=== PATIENT | male | born 1965 | race African-American/Black ===

== ENCOUNTER 2017-04-04 14:41 | Emergency (ER) | payer BC ==
[2017-04-04] MEDS ORDERED: Ibuprofen 800 MG TAB ONE (14:49)
[2017-04-04] MEDS ORDERED: Acetaminophen 500 MG TAB ONE (14:49)
[2017-04-04 15:23] LABS: ALT (SGPT) 47 U/L (8-55); AST (SGOT) 47 U/L (5-34); Albumin 3.5 g/dL (3.5-5.0); Alkaline Phosphatase 90 U/L (40-150); Anion Gap 13 mmol/L (10-20); BUN (Urea Nitrogen) 13 mg/dL (8.9-20.6); Bilirubin, Total 0.5 mg/dL (0.2-1.2); Calc. Creatinine Clearance 0 mL/min (70-130); Calcium 9.1 mg/dL (7.8-10.44); Carbon Dioxide 25 mmol/L (22-29); Chloride 95 mmol/L (98-107); Estimated GFR-MDRD 61; Globulin 4.3 g/dL (2.4-3.5); Glucose 191 mg/dL (70-105); Lipase 58 U/L (8-78); Potassium 3.9 mmol/L (3.5-5.1); Protein, Total 7.8 g/dL (6.0-8.3); Sodium 129 mmol/L (136-145)
[2017-04-04 15:24] LABS: Hemoglobin 15.3 g/dL (14.0-18.0); Mean Corpuscular HGB CONC 33.1 g/dL (32.0-36.0); Mean Corpuscular Hemoglobin 27.8 pg (27.0-31.0); Mean Corpuscular Volume 84.2 fl (80.0-94.0); Mean Platelet Volume 9.2 fL (7.4-10.4); Platelet Count 150 thou/uL (130-400); RBC Distribution Width 13.2 % (11.5-14.5); Red Blood Cell (RBC) Count 5.51 mill/uL (4.70-6.10); White Blood Cell (WBC) Count 9.5 thou/uL (4.8-10.8)
[2017-04-04 15:26] LABS: MDiff Complete? YES
[2017-04-04 15:51] LABS: Bilirubin Negative (Negative); Blood, Urine Moderate (Negative); Clarity Clear (Clear); Glucose, Urine (Dipstick) Negative (Negative); Leukocyte Negative (Negative); Nitrite Negative (Negative); Protein, Urine (Dipstick) > or equal to 300 mg/dL (Neg-Trace); Specific Gravity, Urine 1.015 (1.005-1.030); Urobilinogen 0.2 mg/dL (0.2-1.0); pH, Urine 5.5 (5.0-9.0)
[2017-04-04 16:03] LABS: RBC/HPF 0-3 HPF (0-3); Squamous Epithelial 0-3 HPF (0-3); Transitional Epithelial NONE SEEN HPF (0-3); WBC/HPF 0-3 HPF (0-3)
[2017-04-04 16:04] LABS: Bacteria/HPF Rare-Few HPF (None Seen); Crystals/HPF None Seen HPF (Negative); Hyaline Casts/LPF NONE SEEN LPF (0-3 Hyaline); Other Casts/LPF 0-3 MIXED CASTS LPF (0-3 Hyaline); Oval Fat Bodies/HPF None Seen HPF (None Seen); Renal Epithelial None Seen HPF (0-3); Sperm/HPF None Seen HPF (None Seen); Trichomonas/HPF None Seen HPF (None Seen); Yeast-All Forms None Seen HPF (None Seen)
[2017-04-04 16:05] LABS: Other Microscopic Description RARE GRANULAR CAST
--- NOTE | 2017-04-04 17:56 | RAD ---
CHEST TWO VIEWS 04/04/17 The heart is upper normal in size but not clearly enlarged. There is no vascular congestion, edema, or pleural effusion. The lungs are clear. The trachea is midline. There is no current finding of pne umonia. IMPRESSION: No acute findings. POS: HOME
== END 2017-04-04 16:35 | disposition home or self-care (01) ==
LOC: BURERS 14:41
DX: A08.4 Viral intestinal infection, unspecified (principal); E87.1 Hypo-osmolality and hyponatremia; E11.9 Type 2 diabetes mellitus without complications; I10 Essential (primary) hypertension; F17.220 Nicotine dependence, chewing tobacco, uncomplicated; Z79.84 Long term (current) use of oral hypoglycemic drugs; Z79.899 Other long term (current) drug therapy
CPT/HCPCS: 36416; 71020; 80053; 81003; 81015; 82274; 83690; 85025; 87015; 87040; 87045; 87046; 87324; 87449; 87899; 94760; 96360

== ENCOUNTER 2017-04-05 16:31 | Outpatient (CLI) | payer BC ==
[2017-04-05 17:01] LABS: ALT (SGPT) 53 U/L (8-55); AST (SGOT) 48 U/L (5-34); Albumin 3.5 g/dL (3.5-5.0); Alkaline Phosphatase 95 U/L (40-150); Anion Gap 15 mmol/L (10-20); BUN (Urea Nitrogen) 13 mg/dL (8.9-20.6); Bilirubin, Total 0.7 mg/dL (0.2-1.2); Calc. Creatinine Clearance 0 mL/min (70-130); Calcium 8.8 mg/dL (7.8-10.44); Carbon Dioxide 27 mmol/L (22-29); Chloride 96 mmol/L (98-107); Estimated GFR-MDRD 59; Globulin 3.8 g/dL (2.4-3.5); Glucose 166 mg/dL (70-105); Potassium 4.3 mmol/L (3.5-5.1); Protein, Total 7.3 g/dL (6.0-8.3); Sodium 134 mmol/L (136-145)
[2017-04-05 17:09] LABS: Band 17 % (5-11); Hemoglobin 14.7 g/dL (14.0-18.0); Lymphocytes 6 % (21-51); MDiff Complete? YES; Mean Corpuscular HGB CONC 31.6 g/dL (32.0-36.0); Mean Corpuscular Hemoglobin 27.3 pg (27.0-31.0); Mean Corpuscular Volume 86.3 fl (80.0-94.0); Mean Platelet Volume 8.8 fL (7.4-10.4); Monocytes 8 % (0-10); Neutrophil 69 % (42-75); Platelet Count 124 thou/uL (130-400); RBC Distribution Width 13.7 % (11.5-14.5)
== END 2017-04-05 16:32 | disposition home or self-care (01) ==
LOC: HPCALD 16:31
PROVIDERS: ATTEND Family Medicine
DX: E87.1 Hypo-osmolality and hyponatremia (principal); R50.9 Fever, unspecified
CPT/HCPCS: 36415; 80053; 85025

== ENCOUNTER 2017-06-07 04:19 | Outpatient (CLI) | payer BC ==
[2017-06-07 06:49] LABS: Hemoglobin 11.3 g/dL (14.0-18.0); Mean Corpuscular HGB CONC 32.6 g/dL (32.0-36.0); Mean Corpuscular Hemoglobin 29.9 pg (27.0-31.0); Mean Platelet Volume 7.5 fL (7.4-10.4); Platelet Count 240 thou/uL (130-400); RBC Distribution Width 13.7 % (11.5-14.5); Red Blood Cell (RBC) Count 3.76 mill/uL (4.70-6.10); White Blood Cell (WBC) Count 7.4 thou/uL (4.8-10.8)
[2017-06-07 06:52] LABS: INR-International Normal Ratio 1.5; Prothrombin Time 18.2 SEC (12.0-14.7)
[2017-06-07 07:04] LABS: Hemoglobin A1c 5.6 % (4.0-6.0)
[2017-06-07 07:12] LABS: Anion Gap 15 mmol/L (10-20); BUN (Urea Nitrogen) 29 mg/dL (8.9-20.6); Calc. Creatinine Clearance 0 mL/min (70-130); Calcium 9.7 mg/dL (7.8-10.44); Carbon Dioxide 25 mmol/L (22-29); Chloride 102 mmol/L (98-107); Estimated GFR-MDRD 83; Glucose 120 mg/dL (70-105); Potassium 4.6 mmol/L (3.5-5.1); Sodium 137 mmol/L (136-145)
== END 2017-06-07 04:20 | disposition home or self-care (01) ==
LOC: BURLABSP 04:19
PROVIDERS: ATTEND Clinical Nurse Specialist Medical-Surgical
DX: Z51.81 Encounter for therapeutic drug level monitoring (principal); Z79.899 Other long term (current) drug therapy; L10.9 Pemphigus, unspecified
CPT/HCPCS: 36415; 80048; 83036; 85027; 85610

== ENCOUNTER 2018-10-11 23:36 | Emergency (ER) | payer OTHER | END 2018-10-12 00:15 | LOC: BURERS 23:36 | DX: K94.23 Gastrostomy malfunction (principal); E11.9 Type 2 diabetes mellitus without complications; E66.9 Obesity, unspecified; E78.5 Hyperlipidemia, unspecified; Z79.899 Other long term (current) drug therapy; Z79.4 Long term (current) use of insulin | CPT/HCPCS: 99283 ==

== ENCOUNTER 2018-11-15 08:49 | Emergency (ER) | payer OTHER | END 2018-11-15 10:12 | disposition short-term general hospital (02) | LOC: BURERS 08:49 | DX: K94.23 Gastrostomy malfunction (principal); E78.5 Hyperlipidemia, unspecified; E11.9 Type 2 diabetes mellitus without complications; I10 Essential (primary) hypertension; E66.9 Obesity, unspecified | CPT/HCPCS: 99284; B4087 ==

== ENCOUNTER 2019-01-17 14:24 | Emergency (ER) | payer OTHER ==
--- NOTE | 2019-01-17 16:40 | RAD ---
PORTABLE CHEST 01/17/19 An AP portable film at 1451 is compared with a 08/28/18 study from [facility]. Cardiomegaly is about the same. There is no mediastinal widening or shift. There is no vascular conge stion, edema, or pleural effusion. The lungs are largely clear except for a linear streak over the right hilar region. This may be a str ip of atelectasis. Otherwise, the lungs were unremarkable. IMPRESSION: Possible strip of plate-like atelectasis in the right mid lung. Otherwise, exam unchanged from prior study. POS: HOME
== END 2019-01-17 16:33 | disposition home or self-care (01) ==
LOC: BURERS 14:24
DX: R11.10 Vomiting, unspecified (principal); R05 Cough; E11.9 Type 2 diabetes mellitus without complications; E78.5 Hyperlipidemia, unspecified; Z86.73 Personal history of transient ischemic attack (TIA), and cerebral infarction without residual deficits; Z79.899 Other long term (current) drug therapy; Z79.4 Long term (current) use of insulin
CPT/HCPCS: 71045

== ENCOUNTER 2020-05-08 18:10 | Emergency (ER) | payer MEDICARE, MEDICAID ==
[2020-05-08 18:42] LABS: #Basophils 0.2 thou/uL (0.0-0.2); #Eosinphils 0.1 thou/uL (0.0-0.7); #Lymphocytes 1.3 thou/uL (1.20-3.40); #Monocytes 0.6 thou/uL (0.11-0.59); #Neutrophils 9.8 thou/uL (1.40-6.50); %Basophils 1.5 % (0.0-1.0); %Eosinophils 0.6 % (0.0-10.0); %Lymphocytes 10.6 % (21.0-51.0); %Neutrophils 82.2 % (42.0-75.0); Hemoglobin 16.2 g/dL (14.0-18.0); Mean Corpuscular HGB CONC 30.4 g/dL (32.0-36.0); Mean Corpuscular Hemoglobin 30.1 pg (27.0-31.0); Mean Corpuscular Volume 98.9 fL (78.0-98.0); Mean Platelet Volume 10.9 fL (7.4-10.4); Platelet Count 124 thou/uL (130-400); RBC Distribution Width 13.9 % (11.5-14.5); White Blood Cell (WBC) Count 11.9 thou/uL (4.8-10.8)
[2020-05-08 19:00] LABS: ALT (SGPT) 20 U/L (8-55); AST (SGOT) 20 U/L (5-34); Albumin 3.7 g/dL (3.5-5.0); Alkaline Phosphatase 102 U/L (40-110); Anion Gap 16 mmol/L (10-20); BUN (Urea Nitrogen) 15 mg/dL (8.4-25.7); Bilirubin, Total 0.3 mg/dL (0.2-1.2); CK (CPK) 117 U/L (30-200); Calc. Creatinine Clearance 0 mL/min (70-130); Calcium 9.1 mg/dL (7.8-10.44); Carbon Dioxide 26 mmol/L (22-29); Chloride 101 mmol/L (98-107); Estimated GFR-MDRD 82; Globulin 4.5 g/dL (2.4-3.5); Glucose 158 mg/dL (70-105); Potassium 5.3 mmol/L (3.5-5.1); Protein, Total 8.2 g/dL (6.0-8.3); Sodium 138 mmol/L (136-145)
[2020-05-08 19:01] LABS: Bilirubin Negative (Negative); Blood, Urine Large (Negative); Clarity Turbid (Clear); Glucose, Urine (Dipstick) Negative (Negative); Ketone, Urine Negative (Negative); Leukocyte Negative (Negative); Nitrite Negative (Negative); Protein, Urine (Dipstick) > or equal to 300 mg/dL (Neg-Trace); Specific Gravity, Urine 1.026 (1.002-1.036); Urobilinogen 0.2 mg/dL (Less than 2); pH, Urine 5.5 (5.0-9.0)
[2020-05-08 19:02] LABS: Bacteria/HPF 1+ HPF (None Seen); Squamous Epithelial 0-3 HPF (0-3); WBC/HPF 0-3 HPF (0-3)
[2020-05-08] MEDS ORDERED: Cefepime 2 GM VIAL ONE (19:07)
[2020-05-08] MEDS ORDERED: levETIRAcetam 500 MG/5 ML VIAL ONE (19:07)
--- NOTE | 2020-05-09 08:01 | RAD ---
PORTABLE CHEST: Date: 05/08/2020 An AP portable film at 1829 hours shows a patchy opacity in the right base medially. An early infiltr ate is possible. The left lung is clear. The vessels do not seem congested. The heart is probably nor mal in size given body habitus and AP projection. At most, it is upper normal. IMPRESSION: Patchy right basilar infiltrate. POS: HOME
--- NOTE | 2020-05-09 08:03 | CT ---
CT BRAIN WITHOUT CONTRAST: Date: 05/08/2020 Comparison made with the 07/20/2019 study. An old right parietal stroke is evident and is similar in appearance to before. Diffuse atrophy with moderate compensatory dilatation of the ventricles is present as usual. There are some chronic ischem ic changes in the deep white matter aside from the stroke. No mass, edema, or bleeding was seen. There is marked mucosal thickening in the left maxillary sinus. The other visible paranasal sinuses a re clear. IMPRESSION: 1. 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 2. Left maxillary sinusitis, a new finding since the prior exam. Preliminary report called to Dr. Figueroa at 1924 hours on 05/08/2020. CODE CR. POS: HOME
== END 2020-05-08 19:59 | disposition short-term general hospital (02) ==
LOC: BURERS 18:10
DX: J18.9 Pneumonia, unspecified organism (principal); R56.9 Unspecified convulsions; E11.9 Type 2 diabetes mellitus without complications; E78.5 Hyperlipidemia, unspecified; I10 Essential (primary) hypertension; Z86.73 Personal history of transient ischemic attack (TIA), and cerebral infarction without residual deficits; Z79.899 Other long term (current) drug therapy; Z79.4 Long term (current) use of insulin
CPT/HCPCS: 51701; 70450; 71045; 80053; 81003; 81015; 82550; 83605; 84443; 84484; 85025; 87040; 87086; 93005; 94760; 96361; 96365; 96368; 96375; J0692; J1953; J1956; J3370

== ENCOUNTER 2020-05-25 12:27 | Outpatient (CLI) | payer MEDICARE, OTHER ==
--- NOTE | 2020-05-25 17:08 | RAD ---
ABDOMEN ONE VIEW: 05/25/20 Comparison is made with the 12/26/18 study. This single view did not show any marked distended loops of to suggest obstruction. Nor was there an excessive amount of fecal material evident. There are some unusual linear gas collections in the righ t flank in the middle to upper portion of the right side of the abdomen. The etiology is not clear on this study. The patient does seem to have a gastrostomy or similar PEG tube in place. No calcificati ons of concern were seen. I would note that the unusual gas collection seen on the right side are celestine y near a site of prior surgery as evidenced by sutures. I note that the patient's femoral heads have very spotty mineralization, though the articular surface s seem smooth. This may be from disuse, but it is more noticeable than on the 2019 study. IMPRESSION: Somewhat unusual gas configuration in the right mid flank. No evidence of alfredito obstruction. See CT r eport to follow. POS: HOME
--- NOTE | 2020-05-25 18:03 | CT ---
CT ABDOMEN AND PELVIS WITHOUT CONTRAST: 05/25/[address] of the abdomen and pelvis was done without oral or IV contrast to investigate abnormal find ings seen on the recent plain radiograph. Around the area of prior colon surgery in the right mid fla nk there is an amalgamation of several small nondistended loops of small bowel. These are likely adhe sed to this area and this entire area may be adhesed to the inner abdominal wall at this point. This would account for the unusual gas configuration seen on plain radiography. It is important to note; h owever, that there is currently no dilation of bowel at all, thus there is no evidence for obstructio n. This could become a point of kinking of bowel and obstruction in the future and should be borne in mind. There is diastasis of the rectus muscles to some extent around the umbilical area. This was po tentially related to the prior surgery. No free air or free fluid was seen. The lung bases are clear. The liver, spleen, pancreas, adrenal glands, kidneys, gallbladder and abdom inal aorta showed no acute findings within the limitations of this noncontrast study. CT of the pelvis showed a prominently enlarged prostate gland (6 cm wide). There are no pelvic inflam matory changes, free fluid or obvious mass. While the mineralization of the femoral heads is spotty, I do not see any bony destructive lesions or widespread sclerotic lesions. IMPRESSION: 1. No evidence of bowel obstruction. No evidence of fecal impaction. The amount of feces present is normal. 2. Unusual gas collection seen on plain radiographs appears to be due to several loops of small bowel that are likely adhesed to an area of prior colonic surgery in the right mid flank. This may be a future site for obstruction, but it is not currently an issue. Findings discussed with Hector Bhat at 1424 on 05/25/20. POS: HOME
== END 2020-05-25 12:28 | disposition home or self-care (01) ==
LOC: BURRAD 12:27
PROVIDERS: ATTEND Registered Nurse Community Health
DX: R14.0 Abdominal distension (gaseous) (principal); R19.5 Other fecal abnormalities; Z90.49 Acquired absence of other specified parts of digestive tract
CPT/HCPCS: 74018; 74176

== ENCOUNTER 2020-06-13 11:05 | Emergency (ER) | payer MEDICARE, MEDICAID ==
[2020-06-13] MEDS ORDERED: Lorazepam 2 MG/ML VIAL ONE (11:13)
[2020-06-13 11:53] LABS: ALT (SGPT) 27 U/L (8-55); AST (SGOT) 22 U/L (5-34); Albumin 3.7 g/dL (3.5-5.0); Alkaline Phosphatase 87 U/L (40-110); Anion Gap 16 mmol/L (10-20); BUN (Urea Nitrogen) 18 mg/dL (8.4-25.7); Bilirubin, Total 0.3 mg/dL (0.2-1.2); Calc. Creatinine Clearance 0 mL/min (70-130); Calcium 8.9 mg/dL (7.8-10.44); Carbon Dioxide 25 mmol/L (22-29); Chloride 102 mmol/L (98-107); Estimated GFR-MDRD Greater than 90; Globulin 4.2 g/dL (2.4-3.5); Glucose 106 mg/dL (70-105); Potassium 4.5 mmol/L (3.5-5.1); Protein, Total 7.9 g/dL (6.0-8.3); Sodium 138 mmol/L (136-145)
[2020-06-13 11:59] LABS: Band 4 % (5-11); Eosinophils 3 % (0-10); Hemoglobin 15.5 g/dL (14.0-18.0); Lymphocytes 36 % (21-51); MDiff Complete? YES; Macrocytosis SLIGHT = 6-15 cells (100X) (0-5/hpf); Mean Corpuscular Hemoglobin 29.2 pg (27.0-31.0); Monocytes 5 % (0-10); Neutrophil 52 % (42-75); Platelet Count 127 thou/uL (130-400); RBC Distribution Width 13.9 % (11.5-14.5); Red Blood Cell (RBC) Count 5.31 mill/uL (4.70-6.10); Toxic Granulation SLIGHT; Vacuoles SLIGHT; White Blood Cell (WBC) Count 5.5 thou/uL (4.8-10.8)
[2020-06-13 13:10] LABS: Bilirubin Negative (Negative); Blood, Urine Trace (Negative); Clarity Clear (Clear); Glucose, Urine (Dipstick) Negative (Negative); Ketone, Urine 15 mg/dL (Negative); Leukocyte Negative (Negative); Nitrite Negative (Negative); Protein, Urine (Dipstick) 100 mg/dL (Neg-Trace); pH, Urine 7.5 (5.0-9.0)
[2020-06-13 13:17] LABS: Bacteria/HPF None Seen HPF (None Seen); RBC/HPF 0-3 HPF (0-3); Squamous Epithelial 0-3 HPF (0-3); WBC/HPF 0-3 HPF (0-3)
--- NOTE | 2020-06-13 17:45 | CT ---
CT OF THE BRAIN WITHOUT CONTRAST: Date: 06-13-[address] was done in response to a seizure. Comparison: 05-08-2020 FINDINGS: Again noted is a prior right parietal stroke with resulting encephalomalacia. The appearance does not seem much different than the prior study. Diffuse atrophy is present as usual, along with moderate c ompensatory dilation of the ventricles. There were no findings strongly suggestive of acute stroke. N o mass, edema, or bleeding was seen. The mucosal thickening in the left maxillary sinus has improved considerably since the prior study. There may be some small polyps in the medial wall of each maxilla ry sinus. IMPRESSION: Old right parietal CVA. No acute intracranial findings. Preliminary report called to Dr. Masterson at 1147 on 06-13-2020. POS: HOME
--- NOTE | 2020-06-13 17:48 | RAD ---
PORTABLE CHEST: Date: 06-13-2020 An AP portable film at 1227 is compared with a 05-11-2020 study. FINDINGS: The depth of inspiration is shallow which accounts for some crowding of the basilar markings. Allowin g for this, no lobar consolidation or effusion was seen. There is no vascular congestion, edema, or o ther acute parenchymal findings of concern. The cardiac size is normal. A thin area of tubing is seen on the right side of the patient's neck, but this may be exterior to the patient. IMPRESSION: No acute thoracic finding. POS: HOME
== END 2020-06-13 14:10 | disposition home or self-care (01) ==
LOC: BURERS 11:05
DX: R56.9 Unspecified convulsions (principal); E11.9 Type 2 diabetes mellitus without complications; E78.5 Hyperlipidemia, unspecified; I10 Essential (primary) hypertension; Z86.73 Personal history of transient ischemic attack (TIA), and cerebral infarction without residual deficits; Z79.899 Other long term (current) drug therapy
CPT/HCPCS: 36415; 51701; 70450; 71045; 80053; 80164; 81003; 81015; 84484; 85025; 94760; 96361; 96374; J2060

== ENCOUNTER 2020-10-21 19:39 | Emergency (ER) | payer MEDICARE, OTHER, MEDICAID ==
[2020-10-21] MEDS ORDERED: Lorazepam 2 MG/ML VIAL ONE (19:41)
[2020-10-21] MEDS ORDERED: levETIRAcetam in NS 100 ML ONE (19:43)
[2020-10-21 20:10] LABS: ALT (SGPT) 23 U/L (8-55); AST (SGOT) 24 U/L (5-34); Albumin 3.8 g/dL (3.5-5.0); Alkaline Phosphatase 111 U/L (40-110); Anion Gap 18 mmol/L (10-20); BUN (Urea Nitrogen) 16 mg/dL (8.4-25.7); Bilirubin, Total 0.4 mg/dL (0.2-1.2); Calc. Creatinine Clearance 0 mL/min (70-130); Calcium 9.6 mg/dL (7.8-10.44); Carbon Dioxide 23 mmol/L (22-29); Chloride 103 mmol/L (98-107); Globulin 4.9 g/dL (2.4-3.5); Glucose 129 mg/dL (70-105); Potassium 4.9 mmol/L (3.5-5.1); Protein, Total 8.7 g/dL (6.0-8.3); Sodium 139 mmol/L (136-145)
[2020-10-21 20:13] LABS: Hemoglobin 17.5 g/dL (14.0-18.0); Mean Corpuscular HGB CONC 31.3 g/dL (32.0-36.0); Mean Corpuscular Hemoglobin 29.6 pg (27.0-31.0); Mean Corpuscular Volume 94.6 fL (78.0-98.0); Platelet Count 149 thou/uL (130-400); RBC Distribution Width 14.7 % (11.5-14.5); Red Blood Cell (RBC) Count 5.91 mill/uL (4.70-6.10); White Blood Cell (WBC) Count 5.9 thou/uL (4.8-10.8)
[2020-10-21 20:19] LABS: Large Platelets SLIGHT; MDiff Complete? YES; Platelet Morphology Comment Appears Adequate; RBC Morphology Normal
[2020-10-21] MEDS ORDERED: metroNIDAZOLE 500 MG/100 ML BAG ONE (20:48)
[2020-10-21 20:49] LABS: Bilirubin Negative (Negative); Blood, Urine Negative (Negative); Clarity Slightly Cloudy (Clear); Glucose, Urine (Dipstick) Negative (Negative); Ketone, Urine Negative (Negative); Leukocyte Negative (Negative); Nitrite Negative (Negative); Protein, Urine (Dipstick) 30 mg/dL (Neg-Trace); Urobilinogen 0.2 mg/dL (Less than 2); pH, Urine 8.5 (5.0-9.0)
[2020-10-21 20:57] LABS: PTT 27.3 sec (22.9-36.1); Prothrombin Time 13.6 sec (12.0-14.7)
[2020-10-21 21:02] LABS: Bacteria/HPF 2+ HPF (None Seen); RBC/HPF None Seen HPF (0-3); Renal Epithelial 0-3 HPF (None Seen); Squamous Epithelial 0-3 HPF (0-3); WBC/HPF 0-3 HPF (0-3)
== END 2020-10-21 21:40 | disposition short-term general hospital (02) ==
LOC: BURERS 19:39
DX: G40.909 Epilepsy, unspecified, not intractable, without status epilepticus (principal); J12.89 Other viral pneumonia; E11.9 Type 2 diabetes mellitus without complications; E78.5 Hyperlipidemia, unspecified; I10 Essential (primary) hypertension; Z86.73 Personal history of transient ischemic attack (TIA), and cerebral infarction without residual deficits; Z79.4 Long term (current) use of insulin; Z79.51 Long term (current) use of inhaled steroids; Z79.899 Other long term (current) drug therapy
CPT/HCPCS: 36415; 36416; 51701; 70450; 71045; 80053; 81003; 81015; 83605; 84484; 85025; 85610; 85730; 87040; 93005; 94760; 96365; 96375; J1953; J1956; J2060; J3370

== ENCOUNTER 2021-03-29 18:55 | Emergency (ER) | payer MEDICARE, MEDICAID ==
[2021-03-29] MEDS ORDERED: Lorazepam 2 MG/ML VIAL ONE (19:05)
[2021-03-29] MEDS ORDERED: levETIRAcetam in NS 100 ML ONE (19:13)
[2021-03-29 19:42] LABS: Hemoglobin 12.9 g/dL (14.0-18.0); Mean Corpuscular HGB CONC 32.1 g/dL (32.0-36.0); Mean Corpuscular Volume 96.5 fL (78.0-98.0); Mean Platelet Volume 11.1 fL (7.4-10.4); Platelet Count 106 thou/uL (130-400); RBC Distribution Width 14.7 % (11.5-14.5); Red Blood Cell (RBC) Count 4.17 mill/uL (4.70-6.10); White Blood Cell (WBC) Count 7.2 thou/uL (4.8-10.8)
[2021-03-29 19:57] LABS: ALT (SGPT) 20 U/L (8-55); AST (SGOT) 17 U/L (5-34); Albumin 1.7 g/dL (3.5-5.0); Alkaline Phosphatase 48 U/L (40-110); Anion Gap 11 mmol/L (10-20); BUN (Urea Nitrogen) 13 mg/dL (8.4-25.7); Bilirubin, Total Less than 0.2 mg/dL (0.2-1.2); Calc. Creatinine Clearance 0 mL/min (70-130); Carbon Dioxide 16 mmol/L (22-29); Chloride 119 mmol/L (98-107); Globulin 2.1 g/dL (2.4-3.5); Glucose 71 mg/dL (70-105); Protein, Total 3.8 g/dL (6.0-8.3); Sodium 143 mmol/L (136-145)
[2021-03-29 20:04] LABS: Calcium 4.8 mg/dL (7.8-10.44); Potassium 2.6 mmol/L (3.5-5.1)
[2021-03-29 20:15] LABS: Band 17 % (5-11); Eosinophils 1 % (0-10); Large Platelets SLIGHT; Lymphocytes 8 % (21-51); MDiff Complete? YES; Monocytes 11 % (0-10); Neutrophil 60 % (42-75); Reactive Lymphocytes 3 % (0-10); Toxic Granulation SLIGHT; Vacuoles SLIGHT
[2021-03-29] MEDS ORDERED: Calcium Gluc 4.6 MEQ/10 ML (100 MG/ML) ONE ×2 (20:27→20:29)
[2021-03-29 22:49] LABS: Bilirubin Negative (Negative); Blood, Urine Negative (Negative); Clarity Clear (Clear); Glucose, Urine (Dipstick) Negative (Negative); Ketone, Urine Negative (Negative); Leukocyte Negative (Negative); Nitrite Negative (Negative); Protein, Urine (Dipstick) > or equal to 300 mg/dL (Neg-Trace); Urobilinogen 0.2 mg/dL (Less than 2); pH, Urine 8.5 (5.0-9.0)
[2021-03-29 23:06] LABS: Bacteria/HPF None Seen HPF (None Seen); Mucous/LPF 2+ LPF (<2+); RBC/HPF 0-3 HPF (0-3); WBC/HPF 0-3 HPF (0-3)
== END 2021-03-29 21:04 | disposition short-term general hospital (02) ==
LOC: BURERS 18:55
DX: G40.901 Epilepsy, unspecified, not intractable, with status epilepticus (principal); J18.9 Pneumonia, unspecified organism; E87.6 Hypokalemia; E11.9 Type 2 diabetes mellitus without complications; E78.5 Hyperlipidemia, unspecified; Z79.899 Other long term (current) drug therapy
CPT/HCPCS: 51702; 71045; 80053; 83605; 83735; 84484; 85025; 87040; 87086; 93005; 96365; 96367; 96375; 99285; J2001; 36415; 81003; 81015; J1953; J1956; J2060

== ENCOUNTER 2021-04-13 10:54 | Inpatient (IN) | payer MEDICARE, MEDICAID ==
[2021-04-13] MEDS ORDERED: Lorazepam 2 MG/ML VIAL ONE (11:02)
[2021-04-13 11:25] LABS: Band 2 % (5-11); Eosinophils 1 % (0-10); Hemoglobin 16.4 g/dL (14.0-18.0); Lymphocytes 22 % (21-51); MDiff Complete? YES; Mean Corpuscular Hemoglobin 30.4 pg (27.0-31.0); Mean Platelet Volume 8.8 fL (7.4-10.4); Monocytes 3 % (0-10); Neutrophil 72 % (42-75); Nucleated RBC 1 % (0); Platelet Count 256 thou/uL (130-400); RBC Distribution Width 14.1 % (11.5-14.5); Red Blood Cell (RBC) Count 5.41 mill/uL (4.70-6.10); Vacuoles MODERATE; White Blood Cell (WBC) Count 21.6 thou/uL (4.8-10.8)
[2021-04-13 11:29] LABS: ALT (SGPT) 42 U/L (8-55); AST (SGOT) 39 U/L (5-34); Albumin 3.6 g/dL (3.5-5.0); Alkaline Phosphatase 119 U/L (40-110); Anion Gap 18 mmol/L (10-20); BUN (Urea Nitrogen) 32 mg/dL (8.4-25.7); Bilirubin, Total 0.4 mg/dL (0.2-1.2); Calc. Creatinine Clearance 0 mL/min (70-130); Calcium 9.6 mg/dL (7.8-10.44); Carbon Dioxide 32 mmol/L (22-29); Chloride 110 mmol/L (98-107); Globulin 5.6 g/dL (2.4-3.5); Glucose 226 mg/dL (70-105); Potassium 4.9 mmol/L (3.5-5.1); Protein, Total 9.2 g/dL (6.0-8.3); Sodium 155 mmol/L (136-145)
[2021-04-13] MEDS ORDERED: Morphine 10 MG/0.5 ML ORAL SYRINGE SL PRN (16:58)
[2021-04-13] MEDS ORDERED: Ondansetron PF 4 MG/2 ML Vial IVP PRN (17:00)
[2021-04-13] MEDS ORDERED: Milk Of Magnesia 30 ML UDCUP PER TUBE PRN (17:00)
[2021-04-13] MEDS ORDERED: Senokot 8.6 MG TAB PER TUBE PRN (17:00)
[2021-04-13] MEDS ORDERED: Scopolamine 1.5 mg/72 hour Patch TOP PRN (17:00)
[2021-04-13] MEDS ORDERED: Zolpidem Tartrate 5 MG TAB PER TUBE PRN (17:00)
[2021-04-13] MEDS ORDERED: Haloperidol Lactate 5 MG/ML VIAL SLOW IVP PRN (17:00)
[2021-04-13] MEDS ORDERED: Loperamide HCl 2 MG CAP PER TUBE PRN (17:00)
[2021-04-13] MEDS ORDERED: diphenhydrAMINE 50 MG/ML VIAL IVP PRN (17:00)
[2021-04-14 07:52] LABS: SARS-CoV-2 PCR by NAA Not Detected (NotDetected)
[2021-04-15] MEDS ORDERED: Lorazepam 2 MG/ML VIAL ONE (05:02)
[2021-04-15] MEDS: Lorazepam 2 MG/ML VIAL SLOW IVP PRN (05:08)
[2021-04-15] MEDS ORDERED: VALPROIC ACID 1000 MG PER TUBE SCH (09:00)
[2021-04-15] MEDS: levETIRAcetam 500 mg/5 ml Oral Solution PER TUBE SCH ×2 (10:35→21:04)
[2021-04-15] MEDS: Valproate Sodium 250 mg/5 ml UD Cup PER TUBE SCH (21:04)
[2021-04-16] MEDS: Valproate Sodium 250 mg/5 ml UD Cup PER TUBE SCH ×2 (09:24→20:19)
[2021-04-16] MEDS: levETIRAcetam 500 mg/5 ml Oral Solution PER TUBE SCH ×2 (09:25→20:19)
[2021-04-16] MEDS ORDERED: Lorazepam 2 MG/ML VIAL ONE (14:54)
[2021-04-16] MEDS: Lorazepam 2 MG/ML VIAL SLOW IVP PRN (15:12)
[2021-04-17] MEDS ORDERED: Lorazepam 2 MG/ML VIAL ONE ×2 (00:24→04:20)
[2021-04-17] MEDS: Lorazepam 2 MG/ML VIAL SLOW IVP PRN ×2 (00:31→04:25)
[2021-04-17] MEDS ORDERED: diphenhydrAMINE 50 MG/ML VIAL ONE (04:21)
[2021-04-17 05:52] VITALS: BP 100/68; TEMP 104
== END 2021-04-17 08:25 | disposition expired | DRG 951 ==
LOC: BURERS 10:54 → BURMED 13:32
PROVIDERS: ADMIT Family Medicine; ATTEND Family Medicine
DX: Z51.5 Encounter for palliative care (principal); A41.9 Sepsis, unspecified organism; J18.9 Pneumonia, unspecified organism; J96.01 Acute respiratory failure with hypoxia; R65.20 Severe sepsis without septic shock; I69.351 Hemiplegia and hemiparesis following cerebral infarction affecting right dominant side; E11.9 Type 2 diabetes mellitus without complications; I10 Essential (primary) hypertension; E78.5 Hyperlipidemia, unspecified; G40.909 Epilepsy, unspecified, not intractable, without status epilepticus; Z20.822 Contact with and (suspected) exposure to COVID-19; Z66 Do not resuscitate; Z85.038 Personal history of other malignant neoplasm of large intestine; Z88.0 Allergy status to penicillin; Z88.8 Allergy status to other drugs, medicaments and biological substances; Z79.4 Long term (current) use of insulin; Z79.2 Long term (current) use of antibiotics; I69.30 Unspecified sequelae of cerebral infarction
CPT/HCPCS: 36415; 71045; 80053; 85025; 94760; 96374; J1200; J2060; U0003; U0005